=== PATIENT | female | born 1995 | race Asian ===

== ENCOUNTER 2020-05-26 13:18 | Emergency (ER) | payer OTHER ==
[~2020-05-26] VITALS: Ht 157.4 cm; Wt 72.7 kg
--- NOTE | 2020-05-26 13:35 | ED Head Injury ---
General Chief Complaint: Trauma-Non Activation Stated Complaint: R ARM PAIN, HIT HEAD Source: patient Exam Limitations: no limitations History of Present Illness Date Seen by Provider: May 26, 2020 Time Seen by Provider: 13:35 Initial Comments Patient slipped on some ice striking the back of her head on the ground. No loss of consciousness, she does have headache neck pain dizziness and nausea. She has some tingling of the right arm but she also landed on the right elbow. Occurred: this evening Severity: moderate Location: occipital Loss of Consciousness: no loss of consciousness Associated Systoms: Headaches Allergies and Home Medications Allergies Coded Allergies: No Known Drug Allergies (Unverified , 05/26/20) Home Medications Ondansetron 4 Mg Tab.rapdis, 4 MG PO Q6H PRN for NAUSEA/VOMITING Prescribed by: JOSSUE BROWNE on 05/26/20 7638 Patient Home Medication List Home Medication List Reviewed: Yes Review of Systems Review of Systems Constitutional: see HPI, dizziness Eyes: No Symptoms Reported Ears, Nose, Mouth, Throat: no symptoms reported Respiratory: no symptoms reported Cardiovascular: no symptoms reported Genitourinary: no symptoms reported Musculoskeletal: see HPI Skin: no symptoms reported Psychiatric/Neurological: No Symptoms Reported Physical Exam Vital Signs Vital Signs - First Documented 05/26/20 13:25 Temp 36.0 Pulse 93 Resp 18 B/P (MAP) 141/92 (108) Pulse Ox 98 O2 Delivery Room Air Capillary Refill : Height, Weight, BMI Height: '" Weight: lbs. oz. kg; BMI Method: General Appearance: WD/WN, no apparent distress HEENT: PERRL/EOMI, normal ENT inspection, other (Tenderness over the occiput no briggs sign or hemotympanum) Neck: non-tender, full range of motion Respiratory: no respiratory distress, no accessory muscle use Gastrointestinal: normal bowel sounds, non tender Extremities: normal range of motion, other (Limited flexion and extension and supination/pronation of the right arm at the elbow secondary to pain. The tingling of the right arm starts at the elbow and extends distally. No tingling proximal to the elbow to suggest a cervical injury.) Psychiatric: alert, oriented x 3 Skin: normal color, warm/dry Austin Coma Score Best Eye Response: (4) Open Spontaneously Best Verbal Response: (5) Oriented Best Motor Response: (6) Obeys Commands Grover Total: 15 Progress/Results/Core Measures Results/Orders My Orders Orders - JOSSUE BROWNE APRN Ct Head/Cervical Spine Wo (05/26/20 13:21) Elbow, Right, 3 Views (05/26/20 13:21) Ibuprofen Tablet (Motrin Tablet) (05/26/20 13:45) Cervical Collar (05/26/20 13:40) Medications Given in ED Current Medications Medications Dose Ordered Sig/Ольга Route Start Time Stop Time Status Last Admin Dose Admin Ibuprofen 800 mg ONCE ONCE PO 05/26/20 13:45 05/26/20 13:46 DC 05/26/20 14:35 800 MG Vital Signs/I&O 05/26/20 13:25 Temp 36.0 Pulse 93 Resp 18 B/P (MAP) 141/92 (108) Pulse Ox 98 O2 Delivery Room Air Departure Communication (Admissions) NAME: HARINDER [facility]ST[facility] REC#: [id number] PT STATUS: REG ER : 1995 PHYSICIAN: JOSSUE BROWNE APRN ADMIT DATE: 05/26/20/ER Draft Date of Exam:05/26/20 CT HEAD/CERVICAL SPINE WO PROCEDURE: CT head and CT cervical spine without contrast. TECHNIQUE: Multiple contiguous axial images were obtained through the brain and cervical spine without the use of intravenous contrast. Sagittal and coronal reformations through the cervical spine were then performed. Auto Exposure Controls were utilized during the CT exam to meet ALARA standards for radiation dose reduction. INDICATION: Fall with head and neck pain as well as right arm tingling. No prior studies are available for comparison. CT HEAD: Ventricles and sulci are within normal limits. No sulcal effacement or midline shift is identified. No acute intra-axial or extra-axial hemorrhage is detected. Cisterns are patent. Visualized paranasal sinuses are clear. IMPRESSION: No acute intracranial process is detected. CT CERVICAL SPINE: There is straightening of the normal cervical lordotic curvature. No fracture or subluxation is identified. Prevertebral tissues are within normal limits. Odontoid is intact. IMPRESSION: No acute bony abnormality is detected. Dictated on workstation # [id number] Dict: 05/26/20 1435 Trans: 05/26/20 1438 CV [id number] Interpreted by: MADAN BROWN MD Electronically signed by: Impression Primary Impression: Concussion Additional Impressions: Cervical myofascial strain Elbow contusion Disposition: 01 HOME, SELF-CARE Condition: Stable Departure-Patient Inst. Decision time for Depature: 14:47 Referrals: ANGEL LUIS KRAUS DO (PCP/Family) Primary Care Physician Patient Instructions: Concussion, Adult ED, Muscle Strain ED Add. Discharge Instructions: 1. Return to ER for any concerns 2. Follow-up with your doctor next week 3. Tylenol and ibuprofen for pain control. Nausea medication as directed. All discharge instructions reviewed with patient and/or family. Voiced understanding. Scripts Ondansetron (Ondansetron Odt) 4 Mg Tab.rapdis 4 MG PO Q6H PRN for NAUSEA/VOMITING, #8 TAB 0 Refills Prov: JOSSUE BROWNE APRN 05/26/20 Work/School Note: Work Release Form Date Seen in the Emergency Department: May 26, 2020 Return to Work: May 28, 2020 Copy Copies To 1: JOSE MA MD, PETER J APRN May 26, 2020 13:35
[2020-05-26] MEDS ORDERED: IBUPROFEN 800 MG (MOTRIN) TAB PO ONE (13:45)
--- NOTE | 2020-05-26 14:21 | Diagnostic Imaging Report ---
INDICATION: Fall with right elbow pain. AP, oblique, lateral views of the right elbow were obtained. No fracture or acute bony abnormality is seen. IMPRESSION: Negative right elbow. Dictated by: Dictated on workstation # [id number]
--- NOTE | 2020-05-26 14:38 | Diagnostic Imaging Report ---
PROCEDURE: CT head and CT cervical spine without contrast. TECHNIQUE: Multiple contiguous axial images were obtained through the brain and cervical spine without the use of intravenous contrast. Sagittal and coronal reformations through the cervical spine were then performed. Auto Exposure Controls were utilized during the CT exam to meet ALARA standards for radiation dose reduction. INDICATION: Fall with head and neck pain as well as right arm tingling. No prior studies are available for comparison. CT HEAD: Ventricles and sulci are within normal limits. No sulcal effacement or midline shift is identified. No acute intra-axial or extra-axial hemorrhage is detected. Cisterns are patent. Visualized paranasal sinuses are clear. IMPRESSION: No acute intracranial process is detected. CT CERVICAL SPINE: There is straightening of the normal cervical lordotic curvature. No fracture or subluxation is identified. Prevertebral tissues are within normal limits. Odontoid is intact. IMPRESSION: No acute bony abnormality is detected. Dictated by: Dictated on workstation # [id number]
[2020-05-26] MEDS ORDERED: ONDA4TAB11 PO (14:48)
[2020-05-26 14:59] VITALS: BP 126/83
== END 2020-05-26 15:02 | disposition home or self-care (01) ==
LOC: ER 13:21
DX: S06.0X0A Concussion without loss of consciousness, initial encounter (principal); S16.1XXA Strain of muscle, fascia and tendon at neck level, initial encounter; S50.01XA Contusion of right elbow, initial encounter; R40.2410 Glasgow coma scale score 13-15, unspecified time; W01.198A Fall on same level from slipping, tripping and stumbling with subsequent striking against other object, initial encounter
CPT/HCPCS: 70450; 72125; 73080